=== PATIENT | female | born 1965 | race Caucasian/White ===

== ENCOUNTER 2019-04-20 23:41 | Emergency (ER) | payer BC, OTHER ==
[~2019-04-20] VITALS: Ht 162.6 cm; Wt 74.1 kg
[2019-04-20] MEDS ORDERED: PERC5TAB12 PO (23:50)
[2019-04-21] MEDS ORDERED: ONDANSETRON 4MG/2ML VIAL (J2405) IV ONE (01:15)
[2019-04-21] MEDS ORDERED: KETOROLAC 30 MG/ML VIAL (J1885) IV ONE (01:15)
[2019-04-21] MEDS ORDERED: ATOR1TAB19 PO (01:19)
[2019-04-21] MEDS ORDERED: OMEP-218 PO (01:19)
[2019-04-21] MEDS ORDERED: METO1TAB7 PO (01:19)
[2019-04-21] MEDS ORDERED: SPIR-10 PO (01:19)
[2019-04-21] MEDS ORDERED: LEVO88TA3 PO (01:19)
[2019-04-21 02:02] LABS: BASO % 0.2 % (0.0-1.0); EOS % 0.1 % (0.0-3.0); HEMATOCRIT 37.9 % (36.0-47.0); HEMOGLOBIN 12.3 g/dl (12.0-15.5); LYMPH # 1.1 10^3/uL (1.5-5.0); LYMPH % 8.9 % (24.0-44.0); MEAN CORPUSCULAR HEMOGLOBIN 30.2 pg (27.0-33.0); MEAN CORPUSCULAR HGB CONC 32.5 g/dl (32.0-36.5); MEAN CORPUSCULAR VOLUME 93.1 fl (80.0-96.0); MONO # 0.4 10^3/uL (0.0-0.8); MONO % 3.7 % (0.0-5.0); NEUTROPHILS # 10.3 10^3/uL (1.5-8.5); NEUTROPHILS % 86.8 % (36.0-66.0); PLATELET COUNT, AUTOMATED 328 10^3/uL (150-450); RED BLOOD COUNT 4.07 10^6/uL (4.00-5.40); WHITE BLOOD COUNT 11.8 10^3/uL (4.0-10.0)
[2019-04-21] MEDS ORDERED: ISOVUE-370 76% 100ML VIAL (Q9967) As Ordered ONE (02:30)
[2019-04-21 02:40] LABS: ALBUMIN 3.9 GM/DL (3.2-5.2); ALT/SGPT 44 U/L (12-78); BILIRUBIN,DIRECT < 0.1 MG/DL (0.0-0.2); BILIRUBIN,TOTAL 0.3 MG/DL (0.2-1.0); LIPASE 121 U/L (73-393); TOTAL PROTEIN 7.7 GM/DL (6.4-8.2)
--- NOTE | 2019-04-21 05:20 | REPVR ---
PROCEDURE INFORMATION: Exam: CT Abdomen And Pelvis Without And With Contrast; Kidneys Exam date and time: 04/21/2019 2:21 AM Age: 53 years old Clinical indication: Abdominal pain; Flank; Left; Additional info: Left flank pain, previous soft tissue obstruction, iv only TECHNIQUE: Imaging protocol: Computed tomography of the abdomen and pelvis without and with intravenous contrast. Exam focused on the kidneys. Radiation optimization: All CT scans at this facility use at least one of these dose optimization techniques: automated exposure control; mA and/or kV adjustment per patient size (includes targeted exams where dose is matched to clinical indication); or iterative reconstruction. Contrast material: ISO; Contrast volume: 100 ml; Contrast route: AC; COMPARISON: No relevant prior studies available. FINDINGS: Lungs: Minimal bibasilar fibro-atelectatic change and question of minimal lower lobe infiltrates. Liver: The liver attenuation is 48 Hounsfield units and the spleen is 102 Hounsfield units. Gallbladder and bile ducts: The gallbladder is somewhat contracted with no stones. Pancreas: Normal. No ductal dilation. Spleen: Normal. No splenomegaly. Adrenals: Normal. No mass. Kidneys and ureters: Left perinephric induration with mild left hydronephrosis and hydroureter which extends to a distal left ureteral calculus just below the level of the left sciatic notch measuring approximately 6 x 6 x 5 mm. Stomach and bowel: Normal. No obstruction. No mucosal thickening. Appendix: A normal appendix is seen. Intraperitoneal space: Unremarkable. No free air. No significant fluid collection. Lymph nodes: Unremarkable. No enlarged lymph nodes. Vasculature: Unremarkable. No abdominal aortic aneurysm. Bladder: Unremarkable. Reproductive: Status post hysterectomy. Bones/joints: Unremarkable.No acute fracture. No dislocation. Soft tissues: Bilateral breast implants. IMPRESSION: 1. Fatty infiltration of the liver. 2. Left obstructive uropathy extending to a distal left ureteral calculus just below the level of the sciatic notch measuring 6 x 6 x 5 mm. 3. Status post hysterectomy. Electronically signed by: Jose Upton On 04/21/2019 05:19:50 AM
[2019-04-21] MEDS ORDERED: KETO10TAB PO (05:38)
[2019-04-21 05:52] VITALS: BP 136/82
== END 2019-04-21 05:53 | disposition home or self-care (01) ==
LOC: M ED 23:41
DX: N20.1 Calculus of ureter (principal); E78.5 Hyperlipidemia, unspecified; A69.20 Lyme disease, unspecified; E78.00 Pure hypercholesterolemia, unspecified; Z87.891 Personal history of nicotine dependence; K76.0 Fatty (change of) liver, not elsewhere classified; Z79.899 Other long term (current) drug therapy; Z88.2 Allergy status to sulfonamides
CPT/HCPCS: 74178; 80047; 80076; 81001; 83690; 85025; 93041; 96374; 96375; 99284; J1885; J2405; Q9967

== ENCOUNTER 2019-04-24 13:02 | Observation (INO) | payer BC, OTHER ==
[2019-04-24] VITALS (8 sets, daily range): BP systolic 121–146; BP diastolic 62–91
[~2019-04-24] VITALS: Ht 162.6 cm; Wt 75.1 kg
[~2019-04-24 13:02] MED LIST: ATOR1TAB19 PO; KETO10TAB PO; LEVO88TA3 PO; METO1TAB7 PO; OMEP-218 PO; PERC5TAB12 PO; SPIR-10 PO
[2019-04-24] MEDS ORDERED: TAMS1CAP17 PO (13:23)
[2019-04-24] MEDS ORDERED: NS 1,000 ML IV ONE (14:15)
[2019-04-24] MEDS ORDERED: VITA100066 PO (14:47)
[2019-04-24] MEDS ORDERED: CBD OIL PO (14:47)
[2019-04-24] MEDS ORDERED: EXCETAB33 PO (14:47)
[2019-04-24] MEDS ORDERED: IBUP200T45 PO (14:47)
[2019-04-24] MEDS ORDERED: ESTR1TAB PO (14:47)
[2019-04-24] MEDS ORDERED: VITA-172 PO (14:47)
--- NOTE | 2019-04-24 15:05 | SMCUROLCON ---
Urology Consultation General Date of Consultation 04/24/19 Reason For Consultation This patient is seen for Poss. Kidney Stone. History of Present Illness The patient is a [53]-year-old [F] who presented to an outside ER with 6mm left obstructing ureteral stone. This was her 4th ER visit with the same stone in the past 4 weeks. He was recently at [facility] on April 21 2019 with the same issues. She has had persistent flank pain, nausea and vomiting. Pain is rated 10/10. No prior history of stones. Past Medical History Surgical Hstory hysterectomy and exploration. Social History * Smoker: non-smoker Alcohol: Denies Drugs: denies Medications Current Medications Current Medications Medications (Trade) Dose Ordered Sig/Joey Route PRN Reason Start Time Stop Time Status Last Admin Dose Admin Home Med (Med Rec Complete!) ASDIRECTED XX 04/24/19 15:00 04/24/19 14:49 DC Allergies Allergies: Coded Allergies: Sulfa (Sulfonamide Antibiotics) (Verified Allergy, Intermediate, REDNESS/SWELLING, 04/24/19) Review of Systems Constitutional: Reports: Weakness Genitourinary: Reports: Frequency Musculoskeletal: Reports: Muscle Pain Physical Examination Female Exam: No: Nl Ext Genitalia, Normal Cervical Exam, Lesions, Discharge, Odor, Tenderness, Nl Rectal Sphincter Tone Vital Signs/I&O Vital Signs Date Time Temp Pulse Resp B/P (MAP) Pulse Ox O2 Delivery O2 Flow Rate FiO2 04/24/19 14:27 04/24/19 13:02 97.3 69 18 97 Room Air Assessment 53 year old F with obstructing 6mm left ureteral stone with 4 ER visits in past 4 weeks with same stone. She has failed trial of passage. I discussed with her cystoscopy with ureteral stenting with staged ureteroscopy and laser lithotripsy. She is most interested in ureteral stenting and understands this a temporizing measure until she can be scheduled as an outpatient for ureteroscopy and laser lithotripsy for definitive stone management. Plan for OR today. TYLER TRACY M.D. Apr 24, 2019 15:05
[2019-04-24] MEDS ORDERED: ONDANSETRON 4MG/2ML VIAL (J2405) IV PRN ×2 (15:30→18:15)
[2019-04-24] MEDS ORDERED: estradioL 1 MG TAB PO SCH (15:30)
[2019-04-24] MEDS ORDERED: ACETAMINOPHEN TAB 650MG DOSE (2X325MG) PO PRN (15:30)
[2019-04-24] MEDS ORDERED: MORPHINE 2 MG/ML 1ML VIAL (J2270) IV PRN ×2 (15:30→18:15)
--- NOTE | 2019-04-24 15:32 | HPEPDOC ---
General Date of Admission Apr 24, 2019 at 13:03 Date of Service: Apr 24, 2019 Chief Complaint The patient is a 53-year-old female admitted with a reason for visit of Ureterolithiasis. Source: Patient, Family Exam Limitations: No limitations Timing/Duration: Other Severity: Moderate Associated Symptoms: Other (flank pain) History of Present Illness This is 53 years old white female with past medical history of hypothyroidism, hypertension, GERD, hyperlipidemia, had developed left flank pain which is sharp in nature, nonradiating, persistent present since Thanksgiving associated with nausea and vomiting was transferred from [facility] for urology evaluation. As per patient, she was diagnosed there with 6 mm left kidney stones but no urologist was available to take care of the problem. Hence, she was transferred here for urology evaluation. As per patient, she is still has a left flank pain and last episode of vomiting happen at 2 AM after eating some food. Otherwise, she does not feel any nausea, vomiting at the present time. Home Medications Scheduled Atorvastatin Calcium (Atorvastatin Calcium) 10 Mg Tablet, 10 MG PO QHS, (Reported) Cholecalciferol (Vitamin D3) (Vitamin D3) 1,000 Unit Tablet, 2,000 UNIT PO DAILY, (Reported) Cyanocobalamin (Vitamin B-12) (Vitamin B-12) 500 Mcg Tablet, 500 MCG PO DAILY, ( Reported) Estradiol (Estradiol) 1 Mg Tablet, 1 MG PO ASDIRECTED, (Reported) TAKES ONE TABLET DAILY FOR 3 WEEKS, THEN OFF FOR ONE WEEK. PT HAS NOT TAKEN IN 2 WEEKS Levothyroxine Sodium (Levothyroxine Sodium) 88 Mcg Tablet, 88 MCG PO DAILY, (Reported) Metoprolol Succinate (Metoprolol Succinate) 50 Mg Tab.er.24h, 50 MG PO QHS, (Reported) Omeprazole (Omeprazole) 20 Mg Capsule.dr, 20 MG PO DAILY, (Reported) Spironolactone (Spironolactone) 25 Mg Tablet, 25 MG PO QHS, (Reported) Tamsulosin Hcl (Tamsulosin HCl) 0.4 Mg Capsule, 0.4 MG PO DAILY, (Reported) Scheduled PRN Aspirin/Acetaminophen/Caffeine (Excedrin Migraine Caplet) 1 Each Tablet, 2 TAB- CAP PO DAILY PRN for HEADACHE, (Reported) Cannabidiol (Cbd Oil) Btl, 2 CHEW PO DAILY PRN for PAIN, (Reported) Ibuprofen (Ibu-200) 200 Mg Tablet, 600 MG PO Q6H PRN for PAIN, (Reported) Allergies Coded Allergies: Sulfa (Sulfonamide Antibiotics) (Verified Allergy, Intermediate, REDNESS/SWELLING, 04/24/19) Past Medical History Medical History Hypertension, hyperlipidemia, hypothyroidism, vitamin D deficiency Surgical History Breast augmentation Lasix surgery, hysterectomy, with exploratory laparotomy Family History Significant Family History: No pertinent family hx Social History * Smoker: Denies Alcohol: Denies Drugs: denies A-FIB/CHADSVASC A-FIB History Current/History of A-Fib/PAF?: No Review of Systems Constitutional: Denies: Chills, Fever, Malaise, Night Sweats, Weakness, Fatigue, Weight Loss, Lethargy, Other Eyes: Denies: Pain, Vision change, Conjunctivae inflammation, Eyelid inflammation, Redness, Other ENT: Denies: Head Aches, Ear Pain, Dysphagia, Sinus Congestion, Post Nasal Drip, Sore Throat, Epistaxis, Other Symptoms Skin: Denies: Rash, Lesions, Jaundice, Bruising, Itching, Dry, Breakdown, Nail Changes, Other Pulmonary: Denies: Dyspnea, Cough, Pleuritic Chest Pain, Other Symptoms Cardiovascular: Denies: Chest Pain, Palpitations, Orthopnea, Paroxysmal Noc. Dyspnea, Edema, Lt Headedness, Other Symptoms Gastrointestinal: Denies: Nausea, Vomiting, Abdominal Pain, Diarrhea, Constipation, Melena, Hematochezia, Other Symptoms Genitourinary: Reports: Other Symptoms (, left flank pain) Hematologic: Denies: Bruising, Bleeding Excessively, Petecchia, Purpura, Enlarged Lymph Nodes, Other Hematologic Endocrine: Denies: Polydipsia, Polyphagia, Polyuria, Heat Intolerance, Cold Intolerance, Other Endocrine Sx Musculoskeletal: Denies: Neck Pain, Back Pain, Shoulder Pain, Arm Pain, Hand Pain, Leg Pain, Foot Pain, Joint Pain, Muscle Pain, Spasms, Other Symptoms Neurological: Denies: Weakness, Numbness, Incoordination, Change in speech, Confusion, Seizures, Other Symptoms Psych: Denies: Mood Normal, Anxiety, Depression, Memory Issues, Thoughts of Self Harm, Anger, Thoughts of Harming Other, Other Psych Physical Examination General Exam: Positive: Alert, Cooperative Eye Exam: Positive: PERRLA, Conjunctiva & lids normal ENT Exam: Positive: Atraumatic Neck Exam: Positive: Supple Chest Exam: Positive: Normal air movement Heart Exam: Positive: Normal S1, Normal S2 Abdomen Exam: Positive: Normal bowel sounds, Soft, Other (, left CVA tenderness. Positive) Extremity Exam: Positive: Normal pulses Skin Exam: Positive: Nl turgor and temperature Neuro Exam: Positive: Strength at 5/5 X4 ext, Cranial Nerves 3-12 NL Psych Exam: Positive: Mood NL, Oriented x 3 Vital Signs Vital Signs Date Time Temp Pulse Resp B/P (MAP) Pulse Ox O2 Delivery O2 Flow Rate FiO2 04/24/19 14:27 04/24/19 13:02 97.3 69 18 97 Room Air Problems (1) Ureterolithiasis Status: Acute Problem Text: 53 years old white female, which was diagnosed at [facility] on with left ureter stone H, she was seen in this ER on [address] showed left obstructive distal calculus which is 6 x 6 x 5. Patient was unable to follow with her urologist in town so she decided to come to [facility] for urology consultation may she is being admitted for stent placement. [facility] fluid normal saline 100 mL per hour Morphine sulfate 2 mg IV every 6 hour when necessary Zofran 4 mg IV every 6 hours when necessary Bilateral SCDs for DVT prophylaxis Nothing by mouth except sips and ice chips Activity as tolerated Discussed with Dr. Pinto, patient will be taken the OR for stent placement and hopefully if she is stable and asymptomatic and she'll be discharged home tomorrow (2) Hyperlipidemia Status: Chronic Problem Text: Continue home meds (3) HTN (hypertension) Status: Chronic Problem Text: Continue home meds (4) Hypothyroid Status: Chronic Problem Text: Continue home meds Plan / VTE VTE Prophylaxis Ordered?: Yes NANCY BISHOP MD Apr 24, 2019 15:32
[2019-04-24] MEDS ORDERED: MIDAZOLAM INJ 2 MG/2 ML VIAL (J2250) As Ordered ONE (16:48)
[2019-04-24] MEDS ORDERED: fentaNYL 100 MCG/2 ML INJECTION (J3010) As Ordered ONE (16:48)
[2019-04-24] MEDS ORDERED: ONDANSETRON 4MG/2ML VIAL (J2405) As Ordered ONE (16:49)
[2019-04-24] MEDS ORDERED: dexameTHASONE 4 MG/ML 1ML VIAL (J1100) As Ordered ONE (16:49)
[2019-04-24] MEDS ORDERED: PROPOFOL 200 MG/20 ML VIAL As Ordered ONE (16:49)
[2019-04-24] MEDS ORDERED: LIDOCAINE 2% INJ 100 MG/5 ML SDV (FOR ANES.) As Ordered ONE (16:49)
[2019-04-24] MEDS ORDERED: LIDOCAINE 2% 5ML JELLY UROJET As Ordered ONE (16:53)
[2019-04-24] MEDS ORDERED: CONRAY-60 60% 50ML VIAL (Q9961) As Ordered ONE (16:53)
[2019-04-24] MEDS ORDERED: ceFAZolin 2 GM/D5W 50 ML IV BAG (J0690 PER 500MG) As Ordered ONE (17:23)
--- NOTE | 2019-04-24 17:43 | ROOPDOC ---
[facility] Report Of Operation Report of Operation DATE OF PROCEDURE: 04/24/19 PREPROCEDURE DIAGNOSES: [left obstructing ureteral stone, hydronephrosis]. POSTPROCEDURE DIAGNOSES: [same]. PROCEDURE: [Cystoscopy, left retrograde pyelogram, left ureteral stent placement ]. SURGEON: [Tyler Tracy], PULMONARY SPECIALIST: [none], ANESTHESIA: [mac with local]. ESTIMATED BLOOD LOSS: Approximately [1] mL. COMPLICATIONS: [none]. REMARKS: [urine from left kidney appeared cloudy]. TYLER TRACY M.D. Apr 24, 2019 17:43
--- NOTE | 2019-04-24 17:58 | REP ---
Clinical: Stent placement. Technique: Two intraoperative fluoroscopic images. Findings: The patient is status post left ureteral stent placement. Mild/moderate hydronephrosis noted. Total fluoroscopic time 15 seconds. Impression: Satisfactory left ureteral stent placement. Electronically Signed by Heamnth Feliciano MD 04/24/2019 05:48 P
[2019-04-24] MEDS ORDERED: oxyBUTYnin 5 MG TAB PO PRN (18:15)
[2019-04-24] MEDS ORDERED: fentaNYL 100 MCG/2 ML INJECTION (J3010) IV PRN (18:15)
[2019-04-24] MEDS ORDERED: oxyCODONE 5MG TAB PO PRN (18:15)
[2019-04-24] MEDS ORDERED: PHENAZOPYRIDINE 100 MG TAB PO PRN (18:15)
[2019-04-24] MEDS ORDERED: [UNRECOGNIZED DRUG - REMARK] XX SCH (18:15)
[2019-04-24] MEDS ORDERED: LR 1,000 ML IV SCH (18:15)
[2019-04-24] MEDS: NS 1,000 ML IV SCH (18:52)
[2019-04-24] MEDS ORDERED: ATORVASTATIN 10 MG TAB PO SCH (21:00)
[2019-04-24] MEDS ORDERED: cefTRIAXone SOD 1 GM in D5W MINI-BAG PLUS 50 ML IV SCH (21:00)
[2019-04-24] MEDS ORDERED: SPIRONOLACTONE 25 MG TAB PO SCH (21:00)
[2019-04-24] MEDS ORDERED: METOPROLOL SUCC (TopROL XL) 50MG **XL** TAB PO SCH (21:00)
[2019-04-24] MEDS ORDERED: CALCIUM CARBONATE 500 MG CHEW U/D PO ONE (22:15)
[2019-04-25 02:00] VITALS: BP 120/61
[2019-04-25] MEDS: NS 1,000 ML IV SCH ×2 (04:55→11:30)
[2019-04-25 06:00] VITALS: BP 126/70
[2019-04-25] MEDS ORDERED: LEVOTHYROXINE 88MCG TABLET (0.088 MG) PO SCH (06:00)
[2019-04-25 06:57] LABS: HEMATOCRIT 34.4 % (36.0-47.0); HEMOGLOBIN 10.8 g/dl (12.0-15.5); MEAN CORPUSCULAR HEMOGLOBIN 29.7 pg (27.0-33.0); MEAN CORPUSCULAR HGB CONC 31.4 g/dl (32.0-36.5); MEAN CORPUSCULAR VOLUME 94.5 fl (80.0-96.0); PLATELET COUNT, AUTOMATED 310 10^3/uL (150-450); RED BLOOD COUNT 3.64 10^6/uL (4.00-5.40); WHITE BLOOD COUNT 8.8 10^3/uL (4.0-10.0)
[2019-04-25 07:23] LABS: ALBUMIN 2.8 GM/DL (3.2-5.2); BILIRUBIN,TOTAL 0.2 MG/DL (0.2-1.0); CALCIUM LEVEL 8.7 MG/DL (8.5-10.1); CREATININE FOR GFR 1.39 MG/DL (0.55-1.30); GLOMERULAR FILTRATION RATE 42.1 (>51); POTASSIUM SERUM 4.2 MEQ/L (3.5-5.1); TOTAL PROTEIN 6.7 GM/DL (6.4-8.2)
[2019-04-25] MEDS ORDERED: TAMSULOSIN 0.4 MG CAP PO SCH (09:00)
[2019-04-25] MEDS ORDERED: OMEPRAZOLE 20 MG CAP PO SCH (09:00)
[2019-04-25] MEDS ORDERED: CEFP200T PO (09:15)
--- NOTE | 2019-04-25 11:11 | DS.PDOC ---
Discharge Summary General Date of Admission Apr 24, 2019 at 13:03 Date of Discharge 04/25/19 Discharge Summary PROCEDURES PERFORMED DURING STAY: Cystoscopy with ureteral stent placement. ADMITTING DIAGNOSES: 1. Left ureterolithiasis. DISCHARGE DIAGNOSES: 1. Left ureterolithiasis, status post cystoscopy with left ureter stent placement, hypothyroid, hypertension, hyperlipidemia, GERD. COMPLICATIONS/CHIEF COMPLAINT: Ureterolithiasis. HISTORY OF PRESENT ILLNESS: This is 53 years old white female with past medical history of hypothyroidism, hypertension, GERD, hyperlipidemia, had developed left flank pain which is sharp in nature, nonradiating, persistent present since Thanksgi associated with nausea and vomiting was transferred from [facility] for urology evaluation. As per patient, she was diagnosed there with 6 mm left kidney stones but no urologist was available to take care of the problem. Hence, she was transferred here for urology evaluation. As per patient, she is still has a left flank pain and last episode of vomiting happen at 2 AM after eating some food. Otherwise, she does not feel any nausea, vomiting at the present time.. HOSPITAL COURSE: Patient was admitted to [facility] with a left ureteral stone. Patient was started on IV fluids, pain management, as well as IV antibiotics as per urology recommendations. Patient was taken the OR by urology and had a cystoscopy with left ureteral stent placement. Patient is completely asymptomatic at this time. Discussed with Dr. Pinto patient will be discharged home on by mouth antibiotics and follow with him in one week. DISCHARGE MEDICATIONS: Please see below. ALLERGIES: Please see below. PHYSICAL EXAMINATION ON DISCHARGE: VITAL SIGNS: Please see below. GENERAL: Within normal limits HEENT: PERRLA. Extraocular muscles intact NECK: Supple. Negative JVD, negative lymphadenopathy CARDIOVASCULAR EXAMINATION: S1, S2, regular RESPIRATORY EXAMINATION: Clear to A&P ABDOMINAL EXAMINATION: , Soft, nontender, bowel sound present EXTREMITIES: No clubbing, cyanosis, edema SKIN: Normal NEUROLOGICAL EXAMINATION: . No focal motor sensory deficit PSYCHIATRIC EXAMINATION: Normal LABORATORY DATA: Please see below. IMAGING: Retrograde pyelogram:Impression: Satisfactory left ureteral stent placement. PROGNOSIS: Good ACTIVITY: As tolerated. DIET: As tolerated DISCHARGE PLAN: Follow with urology as an outpatient DISPOSITION: . Home DISCHARGE INSTRUCTIONS: 1. As per discharge instructions. ITEMS TO FOLLOWUP ON ON OUTPATIENT: 1. Follow with urology as an outpatient in one week. DISCHARGE CONDITION: Stable. TIME SPENT ON DISCHARGE: 25 minutes. Vital Signs/I&Os Vital Signs Date Time Temp Pulse Resp B/P (MAP) Pulse Ox O2 Delivery O2 Flow Rate FiO2 04/25/19 06:00 97.1 66 18 126/70 (88) 95 Room Air I&O- Last 24 Hours up to 6 AM 04/25/19 05:59 Intake Total 2220 ml Output Total 1350 ml Balance 870 ml Laboratory Data Labs 24H Laboratory Tests 2 04/25/19 06:29: Nucleated Red Blood Cells % (auto) 0.0, Anion Gap 7L, Glomerular Filtration Rate 42.1L, Calcium Level 8.7, Total Bilirubin 0.2, Aspartate Amino Transf (AST/SGOT) 31, Alanine Aminotransferase (ALT/SGPT) 40, Alkaline Phosphatase 105, Total Protein 6.7, Albumin 2.8L, Albumin/Globulin Ratio 0.72L CBC/BMP Laboratory Tests 04/25/19 06:29 Discharge Medications Scheduled Atorvastatin Calcium (Atorvastatin Calcium) 10 Mg Tablet, 10 MG PO QHS, (Reported) Cefpodoxime Proxetil (Cefpodoxime Proxetil) 200 Mg Tablet, 1 TAB PO BID Cholecalciferol (Vitamin D3) (Vitamin D3) 1,000 Unit Tablet, 2,000 UNIT PO DAILY, (Reported) Cyanocobalamin (Vitamin B-12) (Vitamin B-12) 500 Mcg Tablet, 500 MCG PO DAILY, (Reported) Estradiol (Estradiol) 1 Mg Tablet, 1 MG PO ASDIRECTED, (Reported) TAKES ONE TABLET DAILY FOR 3 WEEKS, THEN OFF FOR ONE WEEK. PT HAS NOT TAKEN IN 2 WEEKS Levothyroxine Sodium (Levothyroxine Sodium) 88 Mcg Tablet, 88 MCG PO DAILY, (Reported) Metoprolol Succinate (Metoprolol Succinate) 50 Mg Tab.er.24h, 50 MG PO QHS, (Reported) Omeprazole (Omeprazole) 20 Mg Capsule.dr, 20 MG PO DAILY, (Reported) Spironolactone (Spironolactone) 25 Mg Tablet, 25 MG PO QHS, (Reported) Scheduled PRN Aspirin/Acetaminophen/Caffeine (Excedrin Migraine Caplet) 1 Each Tablet, 2 TAB- CAP PO DAILY PRN for HEADACHE, (Reported) Cannabidiol (Cbd Oil) Btl, 2 CHEW PO DAILY PRN for PAIN, (Reported) Ibuprofen (Ibu-200) 200 Mg Tablet, 600 MG PO Q6H PRN for PAIN, (Reported) Allergies Coded Allergies: Sulfa (Sulfonamide Antibiotics) (Verified Allergy, Intermediate, REDNESS/SWELLING, 04/24/19) NANCY BISHOP MD Apr 25, 2019 11:11
--- NOTE | 2019-04-26 13:27 | RO ---
DATE OF PROCEDURE: 04/24/2019 PREPROCEDURE DIAGNOSIS: Obstructing left ureteral stone. POSTPROCEDURE DIAGNOSIS: Obstructing left ureteral stone. PROCEDURE: Cystoscopy, left retrograde pyelography with intraoperative interpretation, left ureteral stent placement. SURGEON: Jonathan Castorena MD APPLE TURNER: None. ANESTHESIA: Monitored anesthesia care (MAC) with local. IV FLUIDS: Crystalloid. SPECIMENS: None. DRAINS: 6-Finnish multi-length left ureteral stent. COMPLICATIONS: None. CONDITION: Stable to post-anesthesia care unit (PACU). INDICATIONS FOR PROCEDURE: The patient is a 53-year-old female who has had multiple emergency room (ER) visits, most notably in the last 4 weeks. With findings of a 6 mm left ureteral stone. She has a total of four ER visits for this obstructing ureteral stone, and I was called by an outside hospital to transfer the patient here for further management of her urologic care. Upon arrival, I reviewed her imaging and CT scan. Her creatinine had been elevated to 2.0, and she had an elevated white count of 13,000. After discussing with the patient thoroughly, she decided to proceed to the operating room for a left ureteral stent for decompression of the collecting system. She understood that she would need a staged procedure for definitive management of the stone, and this was only a temporizing measure given the obstruction that was present in the setting of acute kidney injury. DESCRIPTION OF PROCEDURE: Patient identified in preop holding area as herself, informed consent was obtained. The risks, benefits and alternatives were discussed. She was transferred to the operating room and assisted onto the operating room table. Preoperative antibiotics were administered. She was then prepped and draped in a standard sterile fashion. First using a 21-Finnish rigid cystoscope, the bladder was gently entered, cystoscopy was performed. There was no bladder lesion identified. A 0.38 guidewire was then placed into the left ureteral orifice and carried up to the level of the left kidney. A 5-Finnish open-ended catheter was then placed into the left kidney. Hydronephrotic drip was noted. A gentle retrograde pyelogram was performed, which showed evidence of hydronephrosis. The urine did appear slightly cloudy after placement of the contrast. Once this was done, the wire was then replaced. A 6-Finnish multi-length stent was then placed with the proximal curl in the upper pole, distal curl was confirmed to be within the bladder. The patient's bladder was then emptied. The stent appeared to be working in proper fashion. Once the patient's bladder was emptied, she was awakened from anesthesia and transferred to the post-anesthesia care unit (PACU) in stable condition.
== END 2019-04-25 12:30 | disposition home or self-care (01) ==
LOC: M ED 13:02 → M ED INP 13:03 → M MSPAV 18:29
PROVIDERS: ADMIT Internal Medicine; ATTEND Internal Medicine
DX: N20.1 Calculus of ureter (principal); N13.39 Other hydronephrosis; I10 Essential (primary) hypertension; E78.5 Hyperlipidemia, unspecified; E03.9 Hypothyroidism, unspecified; K21.9 Gastro-esophageal reflux disease without esophagitis; Z79.899 Other long term (current) drug therapy; Z79.890 Hormone replacement therapy; Z79.2 Long term (current) use of antibiotics; Z88.2 Allergy status to sulfonamides
CPT/HCPCS: 36415; 52332; 74420; 80053; 85027; 96361; 96374; 99284; C1769; C2617; J0690; J0696; J1100; J2250; J2405; J3010; Q9961

== ENCOUNTER → 2019-05-08 | Outpatient (REF) | payer BC, OTHER ==
[~2019-05-08] MED LIST changes: +CBD OIL PO; +CEFP200T PO; +ESTR1TAB PO; +EXCETAB33 PO; +IBUP200T45 PO; +TAMS1CAP17 PO; +VITA-172 PO; +VITA100066 PO
[2019-05-08 14:11] LABS: APPEARANCE, URINE HAZY (CLEAR); BACTERIA, URINE AUTO 1+ (NEGATIVE); BILIRUBIN, URINE AUTO NEGATIVE (NEGATIVE); BLOOD, URINE BLOOD 3+ (NEGATIVE); COLOR, URINE YELLOW (YELLOW); GLUCOSE, URINE (UA) AUTO NEGATIVE (NEGATIVE); KETONE, URINE AUTO NEGATIVE (NEGATIVE); LEUKOCYTE ESTERASE, URINE AUTO 1+ (NEGATIVE); MUCUS, URINE SMALL (NEGATIVE); NITRITE, URINE AUTO NEGATIVE (NEGATIVE); PROTEIN, URINE AUTO NEGATIVE (NEGATIVE); RBC, URINE AUTO 19 /HPF (0-3); SPECIFIC GRAVITY URINE AUTO 1.008 (1.002-1.035); SQUAMOUS EPITHELIAL CELL UR AU 3 /HPF (0-6); UROBILINOGEN, URINE AUTO 0.2 mg/dL (0.0-2.0); WBC, URINE AUTO 8 /HPF (0-3)
== END ==
LOC: M SMT 13:30
PROVIDERS: ATTEND Nurse Practitioner Women's Health
DX: Z01.818 Encounter for other preprocedural examination (principal); N13.2 Hydronephrosis with renal and ureteral calculous obstruction

== ENCOUNTER → 2019-10-03 | Outpatient (REF) | payer BC, OTHER | LOC: M WUC 19:12 | PROVIDERS: ATTEND Physician Assistant | DX: Z20.828 Contact with and (suspected) exposure to other viral communicable diseases (principal); R50.9 Fever, unspecified ==